=== PATIENT | male | born 2000 | race Caucasian/White ===

== ENCOUNTER 2019-05-18 05:56 | Day surgery (SDC) | payer OTHER ==
[2019-05-11 12:11] VITALS: BMI 22.1
--- NOTE | 2019-05-17 14:09 | HP ---
HISTORY OF PRESENT ILLNESS: Mr. Mcfarland is a 19-year-old man, here today for evaluation of 8 months worth of severe left lower extremity S1 pain. It onsets suddenly without incident history of back or leg pains prior to this. He reports numbness with walking longer distances in the same distribution. He has treated this with therapy and epidural steroid injections as well, they do help, but only for brief months. He has noted that rest and sitting also help his pain. Walking and lifting even light objects make his pain worse and is essentially put him out of commission from a physical perspective. MRI of disk from lumbar spine with grade 1 retrolisthesis of L5-S1 ; however, he has left eccentric disk herniation that impacts and displaces the descending left S1 nerve root. This fits his symptoms quite well. On examination, he is alert and oriented x3. Cranial nerve function is normal. Gait is profoundly antalgic. Lower extremity motor exam is normal. He does have a positive left straight leg raise. PAST MEDICAL HISTORY: None listed. CURRENT MEDICATIONS: None listed. ALLERGIES: NO KNOWN DRUG ALLERGIES. PAST SURGICAL HISTORY: No prior surgeries. ASSESSMENT: Lumbar radiculopathy herniated disk. PLAN: Dr. Burns met with the patient, reviewed imaging, and advocated for L5 diskectomy. He explained the risks, benefits, and alternatives to the procedure. The patient expressed understanding and elected to move forward with surgery as discussed. I do believe the patient is completely capable of making medical decisions for himself. We will move forward with surgery as planned. Job ID: [id number]
[2019-05-18] MEDS ORDERED: Bupivacaine HCl 0.5%/Epinephrine 1:200,000/PF 30 ml Vial ONE (07:53)
[2019-05-18] MEDS ORDERED: Thrombin 5000 UNITS/5 ML VIAL ONE (07:53)
[2019-05-18] MEDS ORDERED: Fentanyl 100 MCG/2 ML VIAL ONE ×2 (08:14→09:47)
[2019-05-18] MEDS ORDERED: Midazolam HCl 2 mg/2 ml Vial ONE (08:16)
[2019-05-18] MEDS ORDERED: Ondansetron PF 4 MG/2 ML Vial ONE (09:22)
[2019-05-18] MEDS ORDERED: Lidocaine 2% PF 5 ML VIAL ONE (09:22)
[2019-05-18] MEDS ORDERED: diphenhydrAMINE 50 MG/ML VIAL ONE (09:22)
[2019-05-18] MEDS ORDERED: PROPOFOL 200 MG/20 ML VIAL ONE (09:22)
[2019-05-18] MEDS ORDERED: Rocuronium Bromide 10 MG/ML (10ML VIAL) ONE (09:22)
[2019-05-18] MEDS ORDERED: Dexamethasone 20 MG/5 ML VIAL ONE (09:22)
[2019-05-18] MEDS ORDERED: Ketorolac Tromethamine 30 MG/ML VIAL ONE (09:22)
[2019-05-18] MEDS ORDERED: Glycopyrrolate 0.2 MG/ML 5 ML SYRINGE ONE (09:22)
[2019-05-18] MEDS ORDERED: Sodium Chloride For Inhalation 0.9% 3 ML NEB ONE (09:32)
[2019-05-18] MEDS ORDERED: Meperidine HCl/PF 25 MG/ML VIAL ONE (09:38)
--- NOTE | 2019-05-18 12:13 | OP ---
DATE OF PROCEDURE: 05/18/2019 ELECTROPLATING LABORER: Pavel Velasuqez PA-C INDICATION: Pain. DIAGNOSIS: Lumbar radiculopathy. PROCEDURE PERFORMED: Left L5 diskectomy. ANESTHESIA: General. DESCRIPTION OF PROCEDURE: The patient was brought into the operating room and placed under general anesthesia. He was flipped from the supine to prone position on the operating room table. A linear incision was planned over L5. After prepping and draping and after an appropriate preoperative pause, the incision was created. The soft tissues were swept left of midline. A self-retaining retractor was placed and a C-arm image was obtained to confirm the appropriate level. High-speed cutting drill bit as well as 2, 3, and 4 mm Kerrison used to perform hemilaminectomy along the inferior aspect of L5 and superior aspect of S1. The descending S1 nerve root was mobilized medially with a nerve root retractor. An annulotomy was performed in the L5 disk space. Disk material was removed until the descending S1 nerve root was well decompressed. The wound was irrigated. Hemostasis was maintained throughout. The wound was then closed in anatomic layers and a pressure dressing was applied. There were no known procedural complications. Job ID: [id number]
== END 2019-05-18 12:43 | disposition home or self-care (01) ==
LOC: SDC 05:56
PROVIDERS: ATTEND Neurological Surgery
PROC: 0ST20ZZ Resection of Lumbar Vertebral Disc, Open Approach (ICD-10-PCS; principal; 2019-05-18)
DX: M54.16 Radiculopathy, lumbar region (principal); M51.26 Other intervertebral disc displacement, lumbar region
CPT/HCPCS: 76000; J0131; J0670; J0690; J1100; J1200; J1885; J2001; J2175; J2250; J2405; J2704; J3010